=== PATIENT | female | born 1955 ===

== ENCOUNTER 2017-12-31 17:54 | Emergency (ER) | payer BC ==
[~2017-12-31 17:54] MED LIST: ISOVUE-370 76%-LOCM 1 ML ONE
[2017-12-31 18:38] LABS: #Basophils 0.1 thou/uL (0.0-0.2); #Eosinphils 0.2 thou/uL (0.0-0.7); #Lymphocytes 1.9 thou/uL (1.20-3.40); #Monocytes 0.6 thou/uL (0.11-0.59); #Neutrophils 3.4 thou/uL (1.40-6.50); %Basophils 1.1 % (0.0-1.0); %Eosinophils 2.5 % (0.0-10.0); %Lymphocytes 31.1 % (21.0-51.0); %Monocytes 9.9 % (0.0-10.0); %Neutrophils 55.4 % (42.0-75.0); Hemoglobin 12.4 g/dL (12.0-16.0); Mean Corpuscular HGB CONC 33.8 g/dL (32.0-36.0); Mean Corpuscular Hemoglobin 29.6 pg (27.0-31.0); Mean Corpuscular Volume 87.7 fl (81.0-99.0); Mean Platelet Volume 8.7 fL (7.4-10.4); Platelet Count 204 thou/uL (130-400); RBC Distribution Width 12.5 % (11.5-14.5); Red Blood Cell (RBC) Count 4.17 mill/uL (4.20-5.40); White Blood Cell (WBC) Count 6.1 thou/uL (4.8-10.8)
[2017-12-31 18:58] LABS: ALT (SGPT) 13 U/L (8-55); AST (SGOT) 21 U/L (5-34); Albumin 4.1 g/dL (3.4-4.8); Alkaline Phosphatase 81 U/L (40-150); Anion Gap 14 mmol/L (10-20); BUN (Urea Nitrogen) 14 mg/dL (9.8-20.1); Bilirubin, Total 0.4 mg/dL (0.2-1.2); CK (CPK) 105 U/L (29-168); Calc. Creatinine Clearance 0 mL/min (70-130); Calcium 9.7 mg/dL (7.8-10.44); Carbon Dioxide 28 mmol/L (23-31); Chloride 103 mmol/L (98-107); Estimated GFR-MDRD 47; Globulin 3.3 g/dL (2.4-3.5); Glucose 164 mg/dL (80-115); Lipase 14 U/L (8-78); Potassium 3.7 mmol/L (3.5-5.1); Protein, Total 7.4 g/dL (6.0-8.3); Sodium 141 mmol/L (136-145)
--- NOTE | 2017-12-31 19:00 | RAD ---
PORTABLE CHEST: 12/31/17 HISTORY: Chest pain. The lungs appear well aerated and clear. No infiltrate identified. Heart and mediastinum are unremark able. IMPRESSION: No acute process. POS: [facility]
[2017-12-31 19:08] LABS: CKMB 1.4 ng/mL (0-6.6); Troponin I Less than 0.010 ng/mL (< 0.028)
--- NOTE | 2017-12-31 19:57 | CT ---
CT PULMONARY ANGIO OF CHEST WITH CONTRAST: 12/31/17 Multiple axial tomograms obtained through the chest with IV enhancement. Pulmonary artery protocol wi th multiplanar reconstruction and 3D postprocessing. HISTORY: Chest pain. The pulmonary arteries are adequately opacified. There is no evidence of pulmonary embolus. Thoracic aorta is unremarkable with no evidence of dissection. The lung garcia are clear with no evidence of infiltrate. Mild atelectasis in both lung bases. Nonspecific mediastinal lymph nodes. Images through upper abdomen unremarkable. IMPRESSION: 1. No evidence of pulmonary embolus. 2. No evidence of acute lung process. POS: [facility]
[2017-12-31] MEDS ORDERED: Nitroglycerin 2% Ointment 1 INCH/1 GM Packet ONE (20:22)
== END 2017-12-31 21:00 | disposition left against medical advice (07) ==
LOC: ERS 17:54
DX: R07.9 Chest pain, unspecified (principal); E10.9 Type 1 diabetes mellitus without complications; E78.5 Hyperlipidemia, unspecified; F32.9 Major depressive disorder, single episode, unspecified
CPT/HCPCS: 36415; 71045; 71275; 80053; 82553; 83690; 84484; 85025; 85379; 93005

== ENCOUNTER 2019-11-18 13:33 | Outpatient (CLI) | payer BC ==
--- NOTE | 2019-11-18 14:17 | ULT ---
ULTRASOUND RETROPERITONEUM COMPLETE: (RENAL) DATE: 11/18/2019 HISTORY: 64-year-old female with ICD-10: N18.3: Chronic kidney disease stage III. FINDINGS: Right kidney: 10 x 5 x 5.5 cm. Left kidney: 9.5 x 5.5 x 6 cm. No hydronephrosis bilaterally. Small exophytic 1.5 cm round cyst arising from upper pole of right kidney. Prior CT of 01/30/2009 demonstrated a larger cyst at right renal lower pole. On this ultrasound, the r ight renal lower pole is obscured by shadowing from overlying bowel gas. Urinary bladder volume of 300 mL at time of scan. Unremarkable otherwise. IMPRESSION: 1. No hydronephrosis. 2. Right renal cyst.
== END 2019-11-18 13:34 | disposition home or self-care (01) ==
LOC: BICULT 13:33
PROVIDERS: ATTEND Internal Medicine Nephrology
DX: N18.3 Chronic kidney disease, stage 3 (moderate) (principal); N28.1 Cyst of kidney, acquired
CPT/HCPCS: 76770